=== PATIENT | male | born 1990 | race American Indian/Alaskan Native ===

== ENCOUNTER 2018-03-27 14:32 | Emergency (ER) | payer SELFPAY ==
--- NOTE | 2018-03-27 20:24 | Emergency Department Report ---
ED Laceration HPI - HPI Chief Complaint: Extremity Problem,Nontraumatic Stated Complaint: HAND LACERATION Time Seen by Provider: 03/27/18 19:53 Occurred When: Before Yesterday (2 days ago) Location: Upper Extremity (left palm laceration) Severity: mild (2/10) Tetanus Status: Not up to Date Laceration Symptoms: Yes Pain (2/10 around left palm laceration), No Foreign Body Sensation, No Numbness, No Weakness Other History: This is a 27-year-old male here reports that he cut his left palm 2 days ago. He denies any bleeding. He said he is here to be evaluated. Denies any medical problem. Pain is 2 out of 10 on movement. Tetanus vaccine is up-to-date. No medication taken prior to coming to the hospital. Pain is dull and worse with movement better with rest in. Denies any numbness or tingling to extremity. Denies any radiation of pain to extremity. Denies any difficulty moving fingers to left hand. Denies any pus or other drainage from site. He reports that it was accidental that he cut himself on a metal object. Denies any foreign body sensation or that objects broke off. ED Review of Systems ROS: Stated complaint: HAND LACERATION Other details as noted in HPI Constitutional: denies: chills, fever Respiratory: denies: cough, shortness of breath, SOB with exertion, SOB at rest , stridor, wheezing Cardiovascular: denies: chest pain, palpitations, dyspnea on exertion, edema, syncope, paroxysmal nocturnal dyspnea Gastrointestinal: denies: abdominal pain, nausea, diarrhea Musculoskeletal: arthralgia. denies: back pain, joint swelling Skin: other (open wound to left palm). denies: rash, lesions Neurological: denies: weakness, numbness, paresthesias ED Past Medical Hx - Past Medical History Previous Medical History?: No - Surgical History Past Surgical History?: No - Family History Family history: no significant - Social History Smoking Status: Current Every Day Smoker Substance Use Type: Alcohol, Marijuana - Medications Home Medications: Home Medications Medication Instructions Recorded Confirmed Last Taken Type Cephalexin [Keflex] 500 mg PO Q8HR 10 Days #30 cap 03/27/18 Unknown Rx Ibuprofen [Motrin] 800 mg PO Q8HR PRN #15 tablet 03/27/18 Unknown Rx Laceration Physical Exam - Exam General: Vital signs noted. No distress. Alert and acting appropriately. This is a 27-year-old male well-nourished well-developed and nontoxic in appearance. Wound Length (cm): 0 (0.5 cm linear and superficial) Laceration Location: Upper Extremity (left palm) Full Body Front + Back: 1 - Patient was 0.5 cm open wound to left palm. No drainage noted. Mild erythema surrounding the laceration site. This is 2 days old so not able to suture site. Area is tender to palpate. Tetanus vaccine is updated. They're irrigated with normal saline, cleansed with iodine and normal saline and sterile nonadhesive gauze dressing placed the site. Laceration Exam: Yes Normal Distal CMS (patient will good color, sensation, temperature and movement to fingers of left hand. +2 pulses to ulnar or radial. No neurovascular compromise), No Foreign Body, No Exposed Tendon, Vessel, or Nerve, No Tendon Injury ED Course Vital Signs 03/27/18 14:36 Temperature 98.3 F Pulse Rate 88 Respiratory 18 Rate Blood Pressure 131/81 O2 Sat by Pulse 97 Oximetry - Reevaluation(s) Reevaluation #1: 03/27/18 20:55 Patient given Motrin 800 mg by mouth in emergency room for pain, started on Keflex 500 mg by mouth and Boostrix 0.5 mL to update tetanus. ED Medical Decision Making - Medical Decision Making This is a 27-year-old male here reports that he cut himself on a metal object 2 days ago and here to be evaluated. He has a laceration to his left palm. Patient was seen and examined by myself and found to have laceration to left palm with mild erythema surrounded edges without any drainage. Minimal tenderness to palpate. I discussed diagnosis and treatment plan the patient and he voiced understanding. A/P 1: Laceration left palm-laceration rugated with normal saline, cleansed with iodine and normal saline, Neosporin ointment placed the site followed by light dry sterile nonadhesive dressing. He was given instruction in acute wound care. 2: Arthralgia right hand-Motrin 800 mg given in emergency room and will be discharged home on Motrin. His pain is controlled. 3: Cellulitis left palm-patient has no signs of tendinitis and is able to move his fingers of his left palm without any difficulties. He was started on Keflex 500 mg by mouth in emergency room. And will be discharged home and Keflex. Patient educated on medication, diagnosis, wound care and need to follow-up. He voices understanding. I'll refer patient to [facility] as he does not have a primary care physician Patient discharged home to follow-up at [facility] in 3 days. He was given prescription for Keflex and Motrin and information on acute wound care. His vital signs are stable afebrile and is nontoxic in appearance. Discharge home in stable condition from ER and was instructed to return to the hospital if he developed increased redness, pain, drainage, difficulty moving his fingers to left hand or difficulty in range of motion to wrist. He voiced understanding and discharged home in stable condition. - Differential Diagnosis tendinitis, cellulitis, laceration, foreign body, Critical care attestation.: If time is entered above; I have spent that time in minutes in the direct care of this critically ill patient, excluding procedure time. ED Disposition Clinical Impression: Cellulitis of left hand excluding fingers and thumb, Arthralgia of left hand Laceration of hand with delay in treatment Qualifiers: Encounter type: initial encounter Laterality: left Qualified Code(s): S61.412A - Laceration without foreign body of left hand, initial encounter Disposition: DC- TO HOME OR SELFCARE Is pt being admited?: No Does the pt Need Aspirin: No Condition: Stable Instructions: Cellulitis (ED), Laceration (ED), Acute Wound Care (ED), Arthralgia (ED) Additional Instructions: Take antibiotic as prescribed Follow-up with your primary care physician in 3 days Keep affected area clean and dry. Followed discharge instruction on acute wound care . Please return to emergency room if you develop ,increasing redness, streaking, fever, difficulty moving fingers to left hand and increase in pain. Prescriptions: Cephalexin [Keflex] 500 mg PO Q8HR 10 Days #30 cap Ibuprofen [Motrin] 800 mg PO Q8HR PRN #15 tablet PRN Reason: Pain Referrals: PRIMARY CARE, [Primary Care Provider] - 03/30/18 [facility] [Outside] - 03/30/18 Forms: Work/School Release Form(ED)
[2018-03-27] MEDS ORDERED: KEFLEX PO ONE (20:25)
[2018-03-27] MEDS ORDERED: TRIPLE ANTIBIOTIC TP ONE (20:25)
[2018-03-27] MEDS ORDERED: MOTRIN PO ONE (20:25)
[2018-03-27] MEDS ORDERED: BOOSTRIX IM ONE (20:27)
[2018-03-27 21:13] VITALS: BP 128/80
== END 2018-03-27 21:12 | disposition home or self-care (01) ==
LOC: ED 14:32
DX: S61.412A Laceration without foreign body of left hand, initial encounter (principal); L03.114 Cellulitis of left upper limb; F17.200 Nicotine dependence, unspecified, uncomplicated; F12.10 Cannabis abuse, uncomplicated; Z91.013 Allergy to seafood; W45.8XXA Other foreign body or object entering through skin, initial encounter; Y93.89 Activity, other specified; Y99.8 Other external cause status; Y92.89 Other specified places as the place of occurrence of the external cause
CPT/HCPCS: 90471; 90715; 99282; 99283; A6250